=== PATIENT | male | born 1990 | race Caucasian/White ===

== ENCOUNTER 2017-03-21 14:29 | Emergency (ER) | payer OTHER, SELFPAY ==
[2017-03-21 14:59] VITALS: BP 187/96; PULSE 98; RESP 18; TEMP 36.4; O2SAT 96; BMI 35.2
[2017-03-21 15:13] LABS: UTC Influenza A Antigen Negative (Negative); UTC Influenza B Antigen Negative (Negative)
--- NOTE | 2017-03-21 16:25 | HMH.EDUTC ---
[facility] – [place], [place] Disposition Clinical Impression: Viral illness Disposition: Home, Self-Care Condition on Discharge: Good Instructions: DI for Viral Syndrome Additional Instructions: * No sign of bacterial infection. Likely viral. Virus can take 7-14 days to run their course * Monitor Temp. Tylenol every 4 hours as needed no more then 5 times a day or 4000mg in 24 hours and/or ibuprofen every 6 hours as needed no more then 3200mg in 24 hours (as long as your primary care doctor has told you that it is ok to take both) for fever/aches/pain. ER if fever no less than 101 despite tylenol and ibuprofen * Encourage fluids, water, gatorade, powerade, pedialyte if infant/toddler/child * warm salt water gargles if sore throat begins * warm fluids * sore throat lozenges if sore throat begins * sleep elevated * humidifier/vaporizer * Avoid anti-diarrheals unless told otherwise. Best to let the virus run its course. FU if worsening, fever or abdominal pain develops, uncontrollable Referrals: Ren Byrd MD [Primary Care Provider] - (IMMEDIATELY for new or worsening symptoms OR no noticeable improvement over the next 48-72 hours. 911 for difficulty breathing or swallowing.) Forms: Work/School Release Time of Disposition: 16:32 Medical Decision Making Vital Signs: 03/21/17 14:59 Temperature 97.6 F Temperature Source Temporal Artery Scan Pulse Rate [Right] 98 H Respiratory Rate 18 Blood Pressure [Right Arm] 187/96 Blood Pressure Mean [Right Arm] 126 Blood Pressure Source [Right Arm] Automatic Cuff Blood Pressure Position [Right Arm] Sitting 02 Sat by Pulse Oximetry 96 Oxygen Delivery Method Room Air - Lab Data Lab results reviewed: Yes: I reviewed the patient's lab results. Lab Results 03/21/17 15:13: Influenza Type A Ag Negative, Influenza Type B Ag Negative - Eamon Inquiry Pt receiving controlled substance: No [facility] – [place], [place] HPI - General Stated complaint: headache weak Time Seen by Provider: 03/21/17 16:15 Mode of Arrival: Ambulatory Source of Information: Patient Limitations: No Limitations Description of Symptoms (Recalled from Triage Doc. by RN): COUGH, TIRED BEGAN YESTERDAY HEENT Symptoms (Recalled from RN notes): Yes Resp Symptoms (Recalled from RN notes): No Skin Symptoms (Recalled from RN notes): No MS Symptoms (Recalled from RN notes): No Functional Status (Recalled from RN notes): N - History of Present Illness Provider Complaint: c/o I think I might be trying to get the flu . Niece recenty tested positive and he has been around her. Cough x2-3 days, more tired yesterday, diarrhea last 3 days that is already improving. Denies fever, aches, chills. Has not had flu vaccine. Mainly I just want to be tested to be sure I am not spreading it around to other . No treatment prior to arrival. - Related Data Home Medications Medication Instructions Recorded Confirmed No Known Home Medications [No 03/21/17 03/21/17 Known Home Medications] Allergies Allergy/AdvReac Type Severity Reaction Status Date / Time amoxicillin [AMOXICILLIN] Allergy Unknown Verified 03/21/17 15:02 - Worker's Comp Is this a Worker's Comp case?: No [facility] History I have reviewed the patient's past medical history: Yes (denies PMHx) Other Surgeries: Yes: No Previous Surgery - *Social History Alcohol Intake: never - Psychiatric History Expresses thoughts of harming self/others: None Suicide Plan Description: No Plan ROS Obtained: Yes Systems reviewed as appropriate & no additional complaints - Constitutional Constitutional: Denies anorexia, Denies body ache, Denies chills, Reports fatigue, Denies weakness - Eyes Eyes: Denies change in vision, Denies eye discharge - ENT Ears, Nose, Mouth, and Throat: Denies abnormal hearing, Denies otalgia, Denies nasal discharge, Denies nasal obstruction, Denies post nasal drip, Denies sinus pressure, Denies throat swelling - Cardiovascular Cardiovascular: Denies irregul
--- NOTE | 2017-03-21 16:28 | ED_ITS ---
[facility] – [place] Disposition Clinical Impression: Viral illness Disposition: Home, Self-Care Condition on Discharge: Good Instructions: DI for Viral Syndrome Additional Instructions: * No sign of bacterial infection. Likely viral. Virus can take 7-14 days to run their course * Monitor Temp. Tylenol every 4 hours as needed no more then 5 times a day or 4000mg in 24 hours and/or ibuprofen every 6 hours as needed no more then 3200mg in 24 hours (as long as your primary care doctor has told you that it is ok to take both) for fever/aches/pain. ER if fever no less than 101 despite tylenol and ibuprofen * Encourage fluids, water, gatorade, powerade, pedialyte if infant/toddler/ child * warm salt water gargles if sore throat begins * warm fluids * sore throat lozenges if sore throat begins * sleep elevated * humidifier/vaporizer * Avoid anti-diarrheals unless told otherwise. Best to let the virus run its course. FU if worsening, fever or abdominal pain develops, uncontrollable Referrals: Ren Byrd MD [Primary Care Provider] - (IMMEDIATELY for new or worsening symptoms OR no noticeable improvement over the next 48-72 hours. 911 for difficulty breathing or swallowing.) Forms: Work/School Release Time of Disposition: 16:32 Medical Decision Making Vital Signs: 03/21/17 14:59 Temperature 97.6 F Temperature Source Temporal Artery Scan Pulse Rate [Right] 98 H Respiratory Rate 18 Blood Pressure [Right Arm] 187/96 Blood Pressure Mean [Right Arm] 126 Blood Pressure Source [Right Arm] Automatic Cuff Blood Pressure Position [Right Arm] Sitting 02 Sat by Pulse Oximetry 96 Oxygen Delivery Method Room Air - Lab Data Lab results reviewed: Yes: I reviewed the patient's lab results. Lab Results 03/21/17 15:13: Influenza Type A Ag Negative, Influenza Type B Ag Negative - Eamon Inquiry Pt receiving controlled substance: No [facility] – [place] HPI - General Stated complaint: headache weak Time Seen by Provider: 03/21/17 16:15 Mode of Arrival: Ambulatory Source of Information: Patient Limitations: No Limitations Description of Symptoms (Recalled from Triage Doc. by RN): COUGH, TIRED BEGAN YESTERDAY HEENT Symptoms (Recalled from RN notes): Yes Resp Symptoms (Recalled from RN notes): No Skin Symptoms (Recalled from RN notes): No MS Symptoms (Recalled from RN notes): No Functional Status (Recalled from RN notes): N - History of Present Illness Provider Complaint: c/o I think I might be trying to get the flu . Niece jorgey tested positive and he has been around her. Cough x2-3 days, more tired yesterday, diarrhea last 3 days that is already improving. Denies fever, aches, chills. Has not had flu vaccine. Mainly I just want to be tested to be sure I am not spreading it around to other . No treatment prior to arrival. - Related Data Home Medications Medication Instructions Recorded Confirmed No Known Home Medications [No 03/21/17 03/21/17 Known Home Medications] Allergies Allergy/AdvReac Type Severity Reaction Status Date / Time amoxicillin [AMOXICILLIN] Allergy Unknown Verified 03/21/17 15:02 - Worker's Comp Is this a Worker's Comp case?: No [facility] History I have reviewed the patient's past medical history: Yes (denies PMHx) Other Surgeries: Yes: No Previous Surgery - *Social History Alcohol Intake: never - Psychiatric History
== END 2017-03-21 16:42 | disposition home or self-care (01) ==
PROVIDERS: Emergency Provider Nurse Practitioner Family; PCP Emergency Medicine
DX: B34.9 Viral infection, unspecified (principal); Z88.1 Allergy status to other antibiotic agents
CPT/HCPCS: 87804; 99202

== ENCOUNTER 2017-04-30 10:17 | Emergency (ER) | payer OTHER, SELFPAY ==
[2017-04-30 10:32] VITALS: BMI 33.9
--- NOTE | 2017-04-30 10:34 | XR_ITS ---
XR elbow RT min 3V HISTORY: Right elbow pain ITS.REASON: PAIN FOR A FEW DAYS FOLLOWING [employer] CLASS ORDERING PHYSICIAN: Luis E Lanier PATIENT AGE: 26 years COMPARISON: None FINDINGS: BONY STRUCTURES: No fracture or dislocation. No lytic or blastic change. Normal mineralization. SOFT TISSUES: Unremarkable. No radio opaque foreign bodies. No displaced fat pad. JOINT SPACE: Well-preserved. No significant arthritic changes evident. IMPRESSION: Negative elbow.
--- NOTE | 2017-04-30 10:34 | XR_ITS ---
XR humerus RT CLINICAL INDICATION: Right arm pain ITS.REASON: PAIN FOR A FEW DAYS FOLLOWING [employer] CLASS ORDERING PHYSICIAN: Luis E Lanier PATIENT AGE: 26 years COMPARISON: None FINDINGS: No bony or joint abnormalities IMPRESSION: Negative right humerus
[2017-04-30 10:49] VITALS: BP 136/86; PULSE 96; RESP 20; TEMP 36.9; O2SAT 99; BMI 33.9
--- NOTE | 2017-04-30 11:20 | HMH.EDUTC ---
[facility] [place] Clinical Impression: Sprain, tricep Qualifiers: Encounter type: initial encounter Laterality: right Qualified Code(s): S46.311A - Strain of muscle, fascia and tendon of triceps, right arm, initial encounter Disposition: Home, Self-Care Condition on Discharge: Good Instructions: DI for Muscle Strain Additional Instructions: * use as tolerated. If painful, stop activity * Rest * ice 15-20 mins 3-4 times a day but if no improvement, try moist heat * Elevate as discussed as much as possible to help reduce swelling and therefore, pain * Ibuprofen every 6 hours as needed for pain and inflammation. If you need something more, you can take tylenol every 4 hours as needed as long as your primary care provider has told you it is ok to take both. Referrals: Ren Byrd MD [Primary Care Provider] - (IMMEDIATELY for new or worsening symptoms OR no noticeable improvement over the next 3-5 days) Time of Disposition: 11:38 Medical Decision Making Vital Signs: 04/30/17 10:49 04/30/17 11:44 Temperature 98.4 F 98.4 F Temperature Source Oral Pulse Rate 98 H Pulse Rate [Right Radial] 96 H Respiratory Rate 20 20 Blood Pressure 127/77 Blood Pressure [Right Arm] 136/86 Blood Pressure Mean [Right Arm] 102 02 Sat by Pulse Oximetry 99 Oxygen Delivery Method Room Air - Radiology Data #1 Image(s): Humerus, Elbow Image Reviewed: Yes I reviewed the patient's radiology image w/the ED provider Preliminary Findings: Normal/NAD Rvwd w/ LUISANA Fairbanks MD - Eamon Inquiry Pt receiving controlled substance: No [facility] [place] - General Stated complaint: right arm pain Time Seen by Provider: 04/30/17 11:20 Mode of Arrival: Family Vehicle Source of Information: Patient Limitations: No Limitations Description of Symptoms (Recalled from Triage Doc. by RN): pt c/o right upper arm pain. HEENT Symptoms (Recalled from RN notes): No Resp Symptoms (Recalled from RN notes): No Skin Symptoms (Recalled from RN notes): No MS Symptoms (Recalled from RN notes): Yes (right upper arm pain) Functional Status (Recalled from RN notes): na - History of Present Illness Provider Complaint: c/o right upper arm pain. First noticed Friday after leaving karate class. No known injury but contributes it to stretching exercises. Didn't think much of it. Noticed it again yesterday while running. Each time my foot hit the pavement, the vibration was aggravating . Pain minimal more of an irritation . Intermittent. No consistent movement or activity aggravates pain but worse with some activities. Denies limited ROM and no N/T. clamp remover already ordered xrays. - Related Data Home Medications Medication Instructions Recorded Confirmed No Known Home Medications [No 03/21/17 04/30/17 Known Home Medications] Allergies Allergy/AdvReac Type Severity Reaction Status Date / Time amoxicillin [AMOXICILLIN] Allergy Unknown Verified 03/21/17 15:02 - Worker's Comp Is this a Worker's Comp case?: No [facility] History I have reviewed the patient's past medical history: Yes Medical History: Denies:: Cancer, Diabetes Mellitus Type 1, Diabetes Mellitus Type 2, Hypertension, MRSA Laterality Cases: Bilateral: Tonsillectomy Other Surgeries: Yes: Other (skin graph left elbow, wisdom teeth extraction) Amputation: No - Social History Smoking Status: Never smoker Alcohol Intake: never - Psychiatric History Expresses thoughts of harming self/others: None Suicide Plan Description: No Plan ROS Obtained: Yes Systems reviewed as appropriate & no additional complaints - Constitutional Constitutional: Denies fatigue, Denies fever(s) - Cardiovascular Cardiovascular: Denies chest pain - Respiratory Respiratory: No dyspnea - Musculoskeletal Musculoskeletal: Reports as per HPI, Denies joint pain, Denies joint swelling, Denies muscle cramps - Integumentary/Breasts Skin/Breast: Denies change in skin color, Denies lesions, Denies rash
--- NOTE | 2017-04-30 11:33 | ED_ITS ---
[facility] [place] Clinical Impression: Sprain, tricep Qualifiers: Encounter type: initial encounter Laterality: right Qualified Code(s): S46.311A - Strain of muscle, fascia and tendon of triceps, right arm, initial encounter Disposition: Home, Self-Care Condition on Discharge: Good Instructions: DI for Muscle Strain Additional Instructions: * use as tolerated. If painful, stop activity * Rest * ice 15-20 mins 3-4 times a day but if no improvement, try moist heat * Elevate as discussed as much as possible to help reduce swelling and therefore , pain * Ibuprofen every 6 hours as needed for pain and inflammation. If you need something more, you can take tylenol every 4 hours as needed as long as your primary care provider has told you it is ok to take both. Referrals: Ren Byrd MD [Primary Care Provider] - (IMMEDIATELY for new or worsening symptoms OR no noticeable improvement over the next 3-5 days) Time of Disposition: 11:38 Medical Decision Making Vital Signs: 04/30/17 10:49 04/30/17 11:44 Temperature 98.4 F 98.4 F Temperature Source Oral Pulse Rate 98 H Pulse Rate [Right Radial] 96 H Respiratory Rate 20 20 Blood Pressure 127/77 Blood Pressure [Right Arm] 136/86 Blood Pressure Mean [Right Arm] 102 02 Sat by Pulse Oximetry 99 Oxygen Delivery Method Room Air - Radiology Data #1 Image(s): Humerus, Elbow Image Reviewed: Yes I reviewed the patient's radiology image w/the ED provider Preliminary Findings: Normal/NAD Rvwd w/ LUISANA Fairbanks MD - Eamon Inquiry Pt receiving controlled substance: No [facility] [place] - General Stated complaint: right arm pain Time Seen by Provider: 04/30/17 11:20 Mode of Arrival: Family Vehicle Source of Information: Patient Limitations: No Limitations Description of Symptoms (Recalled from Triage Doc. by RN): pt c/o right upper arm pain. HEENT Symptoms (Recalled from RN notes): No Resp Symptoms (Recalled from RN notes): No Skin Symptoms (Recalled from RN notes): No MS Symptoms (Recalled from RN notes): Yes (right upper arm pain) Functional Status (Recalled from RN notes): na - History of Present Illness Provider Complaint: c/o right upper arm pain. First noticed Friday after leaving karate class. No known injury but contributes it to stretching exercises. Didn't think much of it. Noticed it again yesterday while running. Each time my foot hit the pavement, the vibration was aggravating . Pain minimal more of an irritation . Intermittent. No consistent movement or activity aggravates pain but worse with some activities. Denies limited ROM and no N/T. wireless team member already ordered xrays. - Related Data Home Medications Medication Instructions Recorded Confirmed No Known Home Medications [No 03/21/17 04/30/17 Known Home Medications] Allergies Allergy/AdvReac Type Severity Reaction Status Date / Time amoxicillin [AMOXICILLIN] Allergy Unknown Verified 03/21/17 15:02 - Worker's Comp Is this a Worker's Comp case?: No [facility] History I have reviewed the patient's past medical history: Yes Medical History: Denies:: Cancer, Diabetes Mellitus Type 1, Diabetes Mellitus Type 2, Hypertension, MRSA Laterality Cases: Bilateral: Tonsillectomy Other Surgeries: Yes: Other (skin graph left elbow, wisdom teeth extraction) Amputation: No - Social History Smoking Status: Never smoker Alanna
[2017-04-30 11:44] VITALS: BP 127/77; PULSE 98; RESP 20; TEMP 36.9; O2SAT 99
== END 2017-04-30 11:44 | disposition home or self-care (01) ==
PROVIDERS: Emergency Provider Nurse Practitioner Family; PCP Emergency Medicine
DX: S46.311A Strain of muscle, fascia and tendon of triceps, right arm, initial encounter (principal); X50.3XXA Overexertion from repetitive movements, initial encounter
CPT/HCPCS: 73060; 73080; 99202

== ENCOUNTER → 2017-05-08 09:17 | Outpatient (CLI) | payer OTHER, SELFPAY ==
[2017-05-08 09:47] LABS: Basophils % 0.3 % (0.1-2.0); Eosinophils # 0.4 K/mm3 (0.0-0.4); Eosinophils % 4.1 % (0.1-12.0); Hematocrit 42.7 % (42.0-52.0); Hemoglobin 14.4 g/dL (14.1-18.0); Lymphocytes # 4.2 K/mm3 (0.7-4.5); Lymphocytes % 41.3 K/mm3 (10-50); Mean Corpuscular HGB Conc 33.8 g/dL (31.8-35.4); Mean Corpuscular Hemoglobin 27.4 pg (27.0-31.2); Mean Corpuscular Volume 80.9 fl (80-94); Monocytes # 0.8 K/mm3 (0.1-1.0); Monocytes % 8.3 % (1.7-9.3); Neutrophils # 4.6 K/mm3 (1.8-7.8); Platelet Count 262 K/mm3 (142-424); Red Blood Count 5.27 M/mm3 (4.60-6.20); Red Cell Distribution Width 12.9 % (11.5-17.5); White Blood Count 10.1 K/mm3 (4.8-10.8)
[2017-05-08 10:00] LABS: Alanine Aminotransferase 53 U/L (12-78); Albumin Level 3.3 gm/dL (3.4-5.0); Albumin/Globulin Ratio 0.9 (1.1-1.8); Alkaline Phosphatase 151 U/L (46-116); Anion Gap 10.9 mEq/L (5-15); Aspartate Amino Transferase 22 U/L (15-37); Bilirubin,Total 0.3 mg/dL (0.2-1.0); Blood Urea Nitrogen 14 mg/dL (7-18); Calcium 8.9 mg/dL (8.5-10.1); Carbon Dioxide 28 mmol/L (21.0-32.0); Chloride 107 mmol/L (98-107); Chol/HDL Ratio 4.6 (1-3.5); Cholesterol 125 mg/dL (140-200); Creatinine,Serum 0.67 mg/dL (0.70-1.30); Estimated Glomerular Filt Rate 142 ml/min (>60); GFR (African American) 172 ML/MIN (>60); Globulin 3.7 gm/dl (1.3-3.2); Glucose 109 mg/dL (74-106); HDL Cholesterol 27 mg/dL (27-67); LDL Cholesterol 62 mg/dL (0-130); Potassium 3.9 mmoL/L (3.5-5.1); Sodium 142 mmol/L (136-145); T4 (Thyroxine) 13.7 ug/dl (4.7-13.3); Triglycerides 182 mg/dL (30-200); VLDL Cholesterol 36 mg/dL (0-40)
[2017-05-08 10:01] LABS: Thyroid Stimulating Hormone < 0.01 uIU/ml (0.358-3.740)
[2017-05-09 09:17] LABS: Hep A Ab, IgM Negative (Negative); Hepatitis B Core Antibody IgM Negative (Negative); Hepatitis B Surface Antigen Negative (Negative)
[2017-05-09 11:38] LABS: Hepatitis C Antibody <0.1 s/co ratio (0.0-0.9)
[2017-05-11 22:07] LABS: 1,25-Dihydroxy, Vitamin D-2 <10 pg/mL (.)
[2017-05-12 06:29] LABS: 1,25 Dihydroxy Vitamin D 31 pg/mL (.); 1,25-Dihydroxy, Vitamin D-3 31 pg/mL (.)
== END ==
PROVIDERS: Visit Provider Nurse Practitioner Family
DX: R53.83 Other fatigue (principal); Z11.9 Encounter for screening for infectious and parasitic diseases, unspecified
CPT/HCPCS: 36415; 80053; 80061; 80074; 82652; 84436; 84443; 85025

== ENCOUNTER 2017-06-12 15:07 | Emergency (ER) | payer OTHER, SELFPAY ==
[2017-06-12 15:15] VITALS: BP 125/72; PULSE 68; RESP 20; TEMP 36.6; O2SAT 95; BMI 36.2
--- NOTE | 2017-06-12 15:16 | HMH.EDUTC ---
[facility] – [place] Disposition Clinical Impression: Pleurisy, Muscle strain Disposition: Home, Self-Care Condition on Discharge: Good Instructions: DI for Pleurisy Additional Instructions: Warm compresses, Motrin, rest. Prescriptions: Cyclobenzaprine HCl [Cyclobenzaprine 10mg Tab] 10 mg PO TID PRN 10 Days #30 tab PRN Reason: Muscle Spasm methylPREDNISolone [Medrol] 4 mg PO DAILY 6 Days #21 tab.ds.pk Referrals: Ren Byrd MD [Primary Care Provider] - Time of Disposition: 15:51 Medical Decision Making - Eamon Inquiry Pt receiving controlled substance: No Vital Signs: 06/12/17 15:15 Temperature 97.9 F Temperature Source Temporal Artery Scan Pulse Rate [Brachial] 68 Respiratory Rate 20 Blood Pressure [Right Arm] 125/72 Blood Pressure Mean [Right Arm] 89 02 Sat by Pulse Oximetry 95 Oxygen Delivery Method Room Air [facility] – [place] HPI - General Stated complaint: right side and back Time Seen by Provider: 06/12/17 15:16 - History of Present Illness Provider Complaint: Patient has pain in his right anterior chest for a few days. Hurts to take a deep breath. Has had pleurisy before and feels similar. No fever. No cough. Also has pain and tightness in right lower back after martial arts class. No dysuria or flank pain. No radiation to groin. Onset (ago): day(s) (3) Location: chest, back Radiation: non-radiation Relieving factors: none Exacerbating factors: none Associated symptoms: denies other symptoms Treatments prior to arrival: NSAID - Related Data Previous Rx's Medication Instructions Recorded Cyclobenzaprine HCl 10 mg PO TID PRN 10 Days #30 tab 06/12/17 [Cyclobenzaprine 10mg Tab] methylPREDNISolone [Medrol] 4 mg PO DAILY 6 Days #21 tab.ds.pk 06/12/17 Allergies Allergy/AdvReac Type Severity Reaction Status Date / Time amoxicillin [AMOXICILLIN] Allergy Unknown Verified 06/02/17 15:42 [facility] History I have reviewed the patient's past medical history: Yes Medical History: Denies:: Cancer, Diabetes Mellitus Type 1, Diabetes Mellitus Type 2, Hypertension, MRSA Comment: none Laterality Cases: Bilateral: Tonsillectomy Amputation: No Fractures: No - Social History Smoking Status: Never smoker Alcohol Intake: never Substance Use Type: denies use Occupational Status: employed Housing: house Household Members: family Family Hx:: No significant family history ROS Obtained: Yes All systems reviewed & no additional complaints - Respiratory Respiratory: No cough, Yes pain on inspiration - Musculoskeletal Musculoskeletal: Reports back pain, Reports muscle cramps, Reports muscle aches, Denies radiating pain into limb Physical Exam - General General appearance: alert, in no apparent distress - Head Head exam: atraumatic, normocephalic - Eye Eye exam: Present: normal appearance, PERRL - Chest Chest inspection: Present: normal inspection - Respiratory Respiratory exam: Present: normal lung sounds bilaterally, respiratory distress - Cardiovascular Cardiovascular exam: Present: regular rate, normal rhythm - Extremities Exam Extremities exam: Present: normal inspection, full ROM - Back Exam Back exam: Present: normal inspection, muscle spasm (right lower back). Absent: CVA tenderness (R), CVA tenderness (L) - Neurological Exam Neurological exam: Present: alert, oriented X3 - Psychiatric Psychiatric exam: Present: normal affect, normal mood - Skin Skin exam: Present: warm
--- NOTE | 2017-06-12 15:21 | ED_ITS ---
[facility] [place] Clinical Impression: Pleurisy, Muscle strain Disposition: Home, Self-Care Condition on Discharge: Good Instructions: DI for Pleurisy Additional Instructions: Warm compresses, Motrin, rest. Prescriptions: Cyclobenzaprine HCl [Cyclobenzaprine 10mg Tab] 10 mg PO TID PRN 10 Days #30 tab PRN Reason: Muscle Spasm methylPREDNISolone [Medrol] 4 mg PO DAILY 6 Days #21 tab.ds.pk Referrals: Ren Byrd MD [Primary Care Provider] - Time of Disposition: 15:51 Medical Decision Making - Eamon Inquiry Pt receiving controlled substance: No Vital Signs: 06/12/17 15:15 Temperature 97.9 F Temperature Source Temporal Artery Scan Pulse Rate [Brachial] 68 Respiratory Rate 20 Blood Pressure [Right Arm] 125/72 Blood Pressure Mean [Right Arm] 89 02 Sat by Pulse Oximetry 95 Oxygen Delivery Method Room Air [facility] [place]PI - General Stated complaint: right side and back Time Seen by Provider: 06/12/17 15:16 - History of Present Illness Provider Complaint: Patient has pain in his right anterior chest for a few days. Hurts to take a deep breath. Has had pleurisy before and feels similar. No fever. No cough. Also has pain and tightness in right lower back after martial arts class. No dysuria or flank pain. No radiation to groin. Onset (ago): day(s) (3) Location: chest, back Radiation: non-radiation Relieving factors: none Exacerbating factors: none Associated symptoms: denies other symptoms Treatments prior to arrival: NSAID - Related Data Previous Rx's Medication Instructions Recorded Cyclobenzaprine HCl 10 mg PO TID PRN 10 Days #30 tab 06/12/17 [Cyclobenzaprine 10mg Tab] methylPREDNISolone [Medrol] 4 mg PO DAILY 6 Days #21 tab.ds.pk 06/12/17 Allergies Allergy/AdvReac Type Severity Reaction Status Date / Time amoxicillin [AMOXICILLIN] Allergy Unknown Verified 06/02/17 15:42 [facility] History I have reviewed the patient's past medical history: Yes Medical History: Denies:: Cancer, Diabetes Mellitus Type 1, Diabetes Mellitus Type 2, Hypertension, MRSA Comment: none Laterality Cases: Bilateral: Tonsillectomy Amputation: No Fractures: No - Social History Smoking Status: Never smoker Alcohol Intake: never Substance Use Type: denies use Occupational Status: employed Housing: house Household Members: family Family Hx:: No significant family history ROS Obtained: Yes All systems reviewed & no additional complaints - Respiratory Respiratory: No cough, Yes pain on inspiration - Musculoskeletal Musculoskeletal: Reports back pain, Reports muscle cramps, Reports muscle aches , Denies radiating pain into limb Physical Exam - General General appearance: alert, in no apparent distress - Head Head exam: atraumatic, normocephalic - Eye Eye exam: Present: normal appearance, PERRL - Chest Chest inspection: Present: normal inspection - Respiratory Respiratory exam: Present: normal lung sounds bilaterally, respiratory distress - Cardiovascular Cardiovascular exam: Present: regular rate, normal rhythm - Extremities Exam Extremities exam: Present: normal inspection, full ROM - Back Exam Back exam: Present: normal inspection, muscle spasm (right lower back). Absent : CVA tenderness (R), CVA tenderness (L) - Neurological Exam Neurological
[2017-06-12 15:50] VITALS: BP 125/72; PULSE 68; RESP 20; TEMP 36.6; O2SAT 95
== END 2017-06-12 15:55 | disposition home or self-care (01) ==
PROVIDERS: Emergency Provider Physician Assistant; PCP Emergency Medicine
DX: R09.1 Pleurisy (principal); Z88.1 Allergy status to other antibiotic agents
CPT/HCPCS: 99201

== ENCOUNTER 2019-06-22 15:46 | Emergency (ER) | payer MEDICAID, SELFPAY ==
[2019-06-22 15:47] VITALS: BP 158/79; PULSE 83; RESP 20; TEMP 37.3; O2SAT 95; BMI 33.5
--- NOTE | 2019-06-22 16:17 | XR_ITS ---
PROCEDURE: XR CHEST 2V CLINICAL HISTORY: FEVER, COUGH, SOA, PAINFUL INSPIRATION Fever cough and chest pain COMPARISON: CXR CHEST(2 VIEWS-NOT PORTABLE) from 02/29/2016 FINDINGS: The cardiomediastinal silhouette and pulmonary vascularity are within normal limits. The lungs are clear without infiltrates, suspicious nodules, or pleural effusions. No acute bony abnormalities. IMPRESSION: No acute findings. Dictated by: Garry Voss MD 06/22/2019 16:52 Electronically signed by Garry Voss MD in [place] 06/22/2019 16:52
[2019-06-22 16:38] LABS: Chloride 106 mmol/L (98-107); Sodium 141 mmol/L (136-145)
[2019-06-22 16:39] LABS: Basophils % 0.4 % (0.1-2.0); Eosinophils # 0.4 K/mm3 (0.0-0.4); Eosinophils % 4.1 % (0.1-12.0); Hematocrit 44.5 % (42.0-52.0); Hemoglobin 14.9 g/dL (14.1-18.0); Lymphocytes % 37.8 % (10-50); Mean Corpuscular HGB Conc 33.4 g/dL (31.8-35.4); Mean Corpuscular Hemoglobin 27.4 pg (27.0-31.2); Mean Platelet Volume 7.4 fl (7.4-10.4); Monocytes # 0.8 K/mm3 (0.1-1.0); Monocytes % 7.7 % (1.7-9.3); Neutrophils # 5.3 K/mm3 (1.8-7.8); Platelet Count 252 K/mm3 (142-424); Red Blood Count 5.43 M/mm3 (4.60-6.20); Red Cell Distribution Width 13.4 % (11.5-17.5); White Blood Count 10.7 K/mm3 (4.8-10.8)
[2019-06-22 16:40] LABS: Alanine Aminotransferase 54 U/L (12-78); Aspartate Amino Transferase 36 U/L (17-59); Blood Urea Nitrogen 14 mg/dl (9-20); Creatinine Clearance Estimated 240 mL/min (50-200); Estimated Glomerular Filt Rate 133 ml/min (>60); GFR (African American) 161 ML/MIN (>60)
[2019-06-22 16:41] LABS: Albumin Level 4.7 g/dl (3.5-5.0); Albumin/Globulin Ratio 1.5 (1.1-1.8); Alkaline Phosphatase 127 U/L (38-126); Bilirubin,Total 0.4 mg/dl (0.2-1.3); Calcium 9.7 mg/dl (8.4-10.2); Carbon Dioxide 26 mmol/L (22.0-30.0); Globulin 3.2 g/dL (1.3-3.2); Glucose 115 mg/dl (74-100); Total Protein,Serum 7.9 g/dl (6.3-8.2)
--- NOTE | 2019-06-22 16:41 | HMH.EDGENADL ---
ED Disposition Clinical Impression: Pleuritic chest pain Dyspnea Qualifiers: Dyspnea type: shortness of breath Qualified Code(s): R06.02 - Shortness of breath Disposition: Home, Self-Care Condition on Discharge: Good Instructions: DI for Shortness of Breath, DI for Chest Pain Additional Instructions: Follow-up coronavirus testing within 1 to 2 days. Off work until test results are known. Additional instructions for CHEST PAIN: See your physician as soon as possible for further evaluation. Return immediately if worsening chest pain, vomiting, shortness of breath, fever, coughing of blood. Referrals: Ren Byrd MD [Primary Care Provider] - Forms: Work/School Release - Critical Care Critical Care Time: No Attestation: On 06/22/19, the high probability of a clinically significant, sudden or life threatening deterioration of the following system(s) required my full and direct attention, intervention and personal management. The time I documented below is in addition to time spent performing reported procedures but includes the following listed in this critical care notation. Medical Decision Making - Eamon Inquiry Pt receiving controlled substance: No Vital Signs: 06/22/19 15:47 Temperature 99.1 F Temperature Source Oral Pulse Rate [Right Radial] 83 Respiratory Rate 20 Blood Pressure [Right Arm] 158/79 H Blood Pressure Mean [Right Arm] 105 Blood Pressure Source [Right Arm] Automatic Cuff Blood Pressure Position [Right Arm] Sitting 02 Sat by Pulse Oximetry 95 Oxygen Delivery Method Room Air - Lab Data Lab Results 06/22/19 16:20: WBC 10.7, RBC 5.43, Hgb 14.9, Hct 44.5, MCV 82.0, MCH 27.4, MCHC 33.4, RDW 13.4, Plt Count 252, MPV 7.4, Neut % (Auto) 50.0, Lymph % (Auto) 37.8, Norton % (Auto) 7.7, Eos % (Auto) 4.1, Baso % (Auto) 0.4, Neut # (Auto) 5.3, Lymph # (Auto) 4.0, Norton # (Auto) 0.8, Eos # (Auto) 0.4, Baso # (Auto) 0.0 06/22/19 16:20: Sodium 141, Potassium 4.0, Chloride 106, Carbon Dioxide 26, Anion Gap 13.0, BUN 14, Creatinine 0.70, Estimated Creat Clear 240, Estimated GFR 133, Est GFR ( Amer) 161, Glucose 115 H, Calcium 9.7, Total Bilirubin 0.4, AST 36, ALT 54, Alkaline Phosphatase 127 H, Total Protein 7.9, Albumin 4.7, Globulin 3.2, Albumin/Globulin Ratio 1.5 06/22/19 16:20: Influenza Type A Ag Negative, Influenza Type B Ag Negative 06/22/19 16:20: Group A Strep Rapid Negative 06/22/19 16:20: Lactate 1.2 06/22/19 16:20: D-Dimer < 100 Result diagrams: 06/22/19 16:20 06/22/19 16:20 Orders (Tests/Meds): ORDERS Category Date Time Status SARS-CoV-2, TAMMIE Stat Lab 06/22/19 17:43 Ordered Blood Culture Stat Micro 06/22/19 16:38 Received Strep Screen Confirmation Stat Micro 06/22/19 16:20 Received - Radiology Data #1 Image(s): Chest Image Reviewed: Yes I reviewed the patient's radiology image, Yes I have reviewed radiologist's interpretation Preliminary Findings: Normal/NAD - ECG Data Tracing #1 EKG interpreted by Conrado Crisostomo MD: Rhythm: sinus bradycardia with sinus arrhythmia Rate: 58 [place]: normal Ectopy: none Conduction: normal ST Segment Changes: none T Wave Changes: none Q Waves: none No evidence of acute ischemia or injury No signs of pericarditis General Adult HPI - General Chief complaint: Shortness of Breath/Dyspnea Stated complaint: SOB Time Seen by Provider: 06/22/19 17:00 Mode of Arrival: Ambulatory Limitations: No Limitations Description of Symptoms (Recalled from ER Triage Doc. by RN): PT ADVISES THAT HE WAS MORE FATIGUED LAST NIGHT WHEN HE GOT IN FROM WORK THAN HE NORMALLY IS. PT STATES THAT AT 0300, HE WOKE UP WITH A SLIGHT COUGH AND SOA. PT STATES THAT THE SOA IS ASSOCIATED WITH PAINFUL INSPIRATION. D/T PAINFUL INSPIRATION, PT IS TAKING SHORT, SHALLOW BREATHS. PT ALSO C/O FEVER. PT ADVISES THAT HE WORKS IN [employer]. - History of Present Illness HPI narrative: She states he awakened at 3 AM with shortness of breath and a
[2019-06-22 16:46] LABS: Strep Scrn Group A (Rapid) Negative (Negative)
[2019-06-22 16:57] LABS: Lactic Acid 1.2 mmol/L (0.7-2.1)
[2019-06-22 17:41] LABS: D-Dimer < 100 ng/mL (0-400)
--- NOTE | 2019-06-22 17:50 | PC.NURSE ---
SPEAKING WITH COVID NURSE AT THIS TIME REGARDING PCR VS COVID SWAB
--- NOTE | 2019-06-22 17:52 | PC.NURSE ---
NOTIFIED JANETT IN LAB OF COVID SWAB ORDER.
--- NOTE | 2019-06-22 17:55 | ECG_ITS ---
APPROVED REPORT Exam: Resting ECG HR:58 bpm ECG Measurements Heart Rate 58 AXES AL 162 P 41 QRSd 92 QRS 60 QT 392 T 55 QTc 384 <Conclusion> Sinus bradycardia with sinus arrhythmia Otherwise normal ECG Electronically signed by : Mendez Fofana, 06/25/2019 08:08:01
[2019-06-22 19:40] VITALS: BP 157/82; PULSE 80; RESP 19; TEMP 36.7; O2SAT 99
[2019-06-23 16:24] LABS: Covid-19 Nasal PCR Sendout Lex NOT DETECTED
--- NOTE | 2019-06-23 17:38 | PC.NURSE ---
1615-pt notified of negative COVID 19 results.
== END 2019-06-22 19:42 | disposition home or self-care (01) ==
PROVIDERS: Emergency Provider Emergency Medicine; PCP Emergency Medicine
DX: R07.89 Other chest pain (principal); Z88.0 Allergy status to penicillin; Z90.09 Acquired absence of other part of head and neck
CPT/HCPCS: 71046; 80053; 83605; 85025; 85378; 87040; 87275; 87276; 87430; 93005; 99283; 99284

== ENCOUNTER → 2019-11-15 17:05 | Outpatient (CLI) | payer MEDICAID, SELFPAY ==
[2019-11-15 17:25] VITALS: BMI 33.9
[2019-11-15 17:36] VITALS: BP 130/72; PULSE 81; RESP 18; TEMP 36.7; O2SAT 98
== END ==
PROVIDERS: PCP Emergency Medicine; Visit Provider Nurse Practitioner Family
DX: Z23 Encounter for immunization (principal)
CPT/HCPCS: 90632

== ENCOUNTER → 2020-07-07 14:26 | Outpatient (CLI) | payer MEDICAID, SELFPAY ==
[2020-07-07 15:17] LABS: Basophils # 0.1 K/mm3 (0-0.2); Basophils % 0.6 % (0.1-2.0); Eosinophils # 0.7 K/mm3 (0.0-0.4); Eosinophils % 6.5 % (0.1-12.0); Hematocrit 47.1 % (42.0-52.0); Hemoglobin 15.8 g/dL (14.1-18.0); Lymphocytes # 3.3 K/mm3 (0.7-4.5); Lymphocytes % 29.4 % (10-50); Mean Corpuscular HGB Conc 33.4 g/dL (31.8-35.4); Mean Corpuscular Hemoglobin 28.8 pg (27.0-31.2); Mean Corpuscular Volume 86.2 fl (80-94); Mean Platelet Volume 7.9 fl (7.4-10.4); Monocytes % 8.7 % (1.7-9.3); Neutrophils # 6.1 K/mm3 (1.8-7.8); Neutrophils % 54.7 % (37.0-80.0); Platelet Count 273 K/mm3 (142-424); Red Blood Count 5.47 M/mm3 (4.60-6.20); Red Cell Distribution Width 13.4 % (11.5-17.5); White Blood Count 11.1 K/mm3 (4.8-10.8)
[2020-07-07 15:52] LABS: Alanine Aminotransferase 201 U/L (12-78); Albumin Level 4.9 g/dl (3.5-5.0); Albumin/Globulin Ratio 1.8 (1.1-1.8); Alkaline Phosphatase 93 U/L (38-126); Anion Gap 14.2 mEq/L (5-15); Aspartate Amino Transferase 135 U/L (17-59); Bilirubin,Total 0.6 mg/dl (0.2-1.3); Blood Urea Nitrogen 13 mg/dl (9-20); Calcium 9.1 mg/dl (8.4-10.2); Carbon Dioxide 26 mmol/L (22.0-30.0); Chloride 106 mmol/L (98-107); Chol/HDL Ratio 5.7 (1-3.5); Cholesterol 204 mg/dl (140-200); Estimated Glomerular Filt Rate 132 ml/min (>60); GFR (African American) 160 ML/MIN (>60); Globulin 2.8 g/dL (1.3-3.2); Glucose 93 mg/dl (74-100); HDL Cholesterol 36 mg/dl (40-60); Potassium 4.2 mmoL/L (3.5-5.1); Sodium 142 mmol/L (136-145); Total Protein,Serum 7.7 g/dl (6.3-8.2); Triglycerides 258 mg/dl (30-150); VLDL Cholesterol 52 mg/dL (0-40)
[2020-07-07 16:10] LABS: T4 (Thyroxine) 11.2 ug/dl (5.53-11.0)
[2020-07-07 16:23] LABS: Thyroid Stimulating Hormone 2.42 uIU/mL (0.465-4.68)
== END ==
PROVIDERS: Visit Provider Nurse Practitioner Family
DX: R10.9 Unspecified abdominal pain (principal); E66.9 Obesity, unspecified; Z68.39 Body mass index [BMI] 39.0-39.9, adult
CPT/HCPCS: 80053; 80061; 84436; 84443; 85025

== ENCOUNTER → 2020-07-14 16:57 | Outpatient (CLI) | payer MEDICAID, SELFPAY ==
[2020-07-16 11:13] LABS: Hep A Ab, IgM Negative (Negative); Hepatitis B Core Antibody IgM Negative (Negative); Hepatitis B Surface Antigen Negative (Negative)
[2020-07-16 12:35] LABS: Hepatitis C Antibody <0.1 s/co ratio (0.0-0.9)
== END ==
PROVIDERS: Visit Provider Emergency Medicine
DX: R79.89 Other specified abnormal findings of blood chemistry (principal); R94.5 Abnormal results of liver function studies
CPT/HCPCS: 80074

== ENCOUNTER → 2020-08-02 08:49 | Outpatient (CLI) | payer MEDICAID, SELFPAY ==
--- NOTE | 2020-08-02 08:50 | CT_ITS ---
PROCEDURE: CT ABDOMEN PELVIS W CON CLINICAL INDICATION: abd pain Lower abdominal tenderness COMPARISON: No exams were available for comparison TECHNIQUE: IV Contrast: 75ML Isovue 370 Oral Contrast None Axial images obtained with sagittal and coronal reformats. All CT scans at the facility use one or more dose reduction, viz: automated exposure control, ma/kV adjustment per patient size (including targeted exams where dose is matched to indication, i.e. head), or iterative reconstruction technique. FINDINGS: LOWER THORAX: No acute finding ABDOMEN & PELVIS: Fatty liver. No focal liver lesion is evident. The spleen, adrenal glands, and pancreas have an unremarkable appearance. There is a small cyst along the lower pole of the left kidney at 13 mm with a small cortical component at 7 mm. No renal or ureteral calculi. No hydronephrosis. No evidence of appendicitis. Scattered small mesenteric lymph nodes are present. There are few colonic diverticula but no evidence of diverticulitis. No pelvic mass or abnormal fluid collection. There is a tiny umbilical hernia containing fat. No acute bony finding. IMPRESSION: No acute abdominal or pelvic findings. There is a tiny umbilical hernia containing fat. Dictated by: Garry Voss MD 08/02/2020 15:17 Garry Voss MD in [place] 08/02/2020 15:17
== END ==
PROVIDERS: PCP Emergency Medicine; Visit Provider Emergency Medicine
DX: R10.9 Unspecified abdominal pain (principal)
CPT/HCPCS: 74177; Q9967

== ENCOUNTER → 2021-08-14 12:57 | Outpatient (CLI) | payer MEDICAID, SELFPAY ==
--- NOTE | 2021-08-14 13:06 | US_ITS ---
FINAL REPORT TECHNIQUE: Sonographic images were obtained of the retroperitoneum. CLINICAL HISTORY: . FINDINGS: The right kidney measures 11.7 cm. The left kidney measures 12.4 cm. There is no evidence of renal mass or hydronephrosis. The spleen measures 12.9 cm. Note is made of fatty infiltration of the liver. IMPRESSION: Fatty liver. No renal mass or hydronephrosis. Reviewed, Interpreted and Dictated by Lambert Mehta III, MD Transcribed by Marlon Paul Authenticated and [facility]
== END ==
PROVIDERS: PCP Emergency Medicine; Visit Provider Urology
DX: N28.1 Cyst of kidney, acquired (principal)
CPT/HCPCS: 76770

== ENCOUNTER 2022-07-07 10:02 | Emergency (ER) | payer MEDICAID, SELFPAY ==
[2022-07-07 10:03] VITALS: BP 126/77; PULSE 116; RESP 18; TEMP 36.8; O2SAT 97; BMI 39.3
--- NOTE | 2022-07-07 10:24 | EXP.UTC ---
Discharge Plan Disposition Patient Disposition: Home, Self-Care Condition: Good Prescriptions Prescriptions: New fluticasone propionate [Flonase Allergy Relief] 50 mcg/actuation spray,suspension 1 - 2 spray intranasal DAILY Qty: 16 0RF Rx Instructions: administer into each nostril azithromycin [Zithromax Z-Guevara] 250 mg tablet See Rx Instructions .ROUTE .COMPLEX 5 Days Qty: 6 0RF Rx Instructions: For 250 mg dose pack: take 500 mg today (day 1), then 250 mg for 4 days (days 2-5) prednisone [prednisone] 20 mg tablet 20 mg PO BID 5 Days Qty: 10 0RF Referrals Follow up/Referrals: Ren Byrd MD [Primary Care Provider] - See instructions Activity Restrictions/Add. Instructions Additional Instructions/Restrictions: *Monitor Temp, Over the counter Motrin or Tylenol as directed/as needed Tylenol every 4 hours and Motrin every 6 hours (as long as your family doctor has told you that you can take it) for fever or pain. and straight to ER if unable to lower temp less than 101.0 after medication given *Warm salt water gargles may help to soothe the throat *Throat Lozenges? *Warm fluids like tea with honey may help to soothe the throat? *Sleep elevated *Humidifier/Vaporizer *Flonase 2 sprays in each nostril daily but be aware that it may take 2-3 days before you notice improvement Your throat swab was sent for culture. Those results are typically sent to your primary care. Be sure to follow up in 2-3 days with your family doctor/primary care physician if no improvement so they can review those result and treat if necessary. If you don?t have a primary care doctor, I recommend you get one but in the mean time, you will have to return to a walk in clinic Follow up IMMEDIATELY for new or worsening symptoms or no Noticeable improvement over the next 48-72 hours. 911 for difficulty breathing or swallowing Clinical Impressions Clinical Impression: Sinusitis Instructions Patient Instructions: DI for Sinusitis, Sinusitis Discharge ED Provider[place] Padmini Reilly [facility] [place] General Stated complaint: Sore throat, congestion, drainage, fever, headache Mode of Arrival: Ambulatory Source of Information: Patient Limitations: No Limitations Time Seen by Provider: 07/07/22 10:24 Description of Symptoms (Recalled from Triage Doc. by RN): sinus issues, sinus pressure, sore throat, hx of fever HEENT Symptoms (Recalled from RN notes): Yes Resp Symptoms (Recalled from RN notes): No Skin Symptoms (Recalled from RN notes): No MS Symptoms (Recalled from RN notes): No Functional Status (Recalled from RN notes): n/a History of Present Illness Provider Complaint: Patient states that he has been having sinus pain and pressure for about a week States that he has been having pain in his ears and sore throat and hurts to swallow States that he thought it was just a cold and has been taking OTC sinus medications but they havent helped and he ran a low grade fever for a couple of days so today when he was still having pressure behind his eyes and drainage in the back of his throat he came in to get checked Related Data Previous Rx's Medication Instructions Recorded azithromycin 250 mg tablet See Rx Instructions PO .COMPLEX 5 07/07/22 (Zithromax Z-Guevara) days #6 tabs fluticasone propionate 50 1 - 2 spray intranasal DAILY #16 07/07/22 mcg/actuation nasal grams spray,suspension (Flonase Allergy Relief) prednisone 20 mg tablet 20 mg PO BID 5 days #10 tabs 07/07/22 Allergies Allergy/AdvReac Type Severity Reaction Status Date / Time Penicillins Allergy Mild Unknown Verified 07/07/22 10:24 allergy reaction amoxicillin [AMOXICILLIN] Allergy Unknown Verified 07/07/22 10:24 Worker's Comp Is this a Worker's Comp case?: No [facility] Disclaimer: The information contained in this section may have been updated after the patient was seen, as this information can be updated by other users.
[2022-07-07 10:30] LABS: UTC Strep Screen (Rapid) Negative (Negative)
[2022-07-07 10:43] VITALS: BP 126/77; PULSE 116; RESP 18; TEMP 36.8; O2SAT 97
== END 2022-07-07 10:42 | disposition home or self-care (01) ==
PROVIDERS: Emergency Provider Nurse Practitioner; PCP Emergency Medicine
DX: J01.90 Acute sinusitis, unspecified (principal); J02.9 Acute pharyngitis, unspecified; R50.9 Fever, unspecified
CPT/HCPCS: 87880; 99212; 99214; G0463